=== PATIENT | male | born 1960 | race African-American/Black ===

== ENCOUNTER 2023-11-30 15:59 | Emergency (ER) | payer SELFPAY ==
[2023-11-30 16:21] VITALS: TEMP 97.9; BMI 28.1
[2023-11-30] MEDS: SODIUM CHLORIDE 1,000 ML IV STA ×2 (17:20→18:48)
[2023-11-30 17:23] LABS: VENOUS O2 SATURATION 15.5 % (70-80); VENOUS PCO2 57.3 mmHg (38-52); VENOUS PH 7.351 (7.310-7.410)
[2023-11-30 17:53] LABS: CHLORIDE 95 mmol/L (98-107); POTASSIUM 5.3 mmol/L (3.5-5.1); SODIUM 131 mmol/L (136-145)
[2023-11-30 17:56] LABS: ANION GAP 4 mmol/L (4-13); BLOOD UREA NITROGEN 15.1 mg/dL (7-18); CALCIUM 9.5 mg/dL (8.5-10.1); CO2 31 mmol/L (21-32)
[2023-11-30 17:57] LABS: ALBUMIN 3.9 g/dl (3.4-5.0); MAGNESIUM 2.9 mg/dL (1.8-2.4)
[2023-11-30 17:58] LABS: EOS % 1.5 % (0-4.5); HEMATOCRIT 39.1 % (35.4-49); HEMOGLOBIN 12.9 GM/dL (11.7-16.9); LYMPH % 30.4 % (8-40); MCH 26.4 pg (25.7-33.7); MEAN PLT VOLUME 10.1 fl (7.5-11.1); MONO % 6.3 % (3.8-10.2); NEUT % 60.8 % (42.8-82.8); PLATELET COUNT 214 10^3/uL (134-434); RBC 4.89 M/mm3 (4.00-5.60); RDW 15.2 % (11.9-15.9); WHITE BLOOD COUNT 7.6 K/mm3 (4.0-10.0)
[2023-11-30 17:59] LABS: CREATININE 1.5 mg/dL (0.55-1.3); SGPT/ALT 29 U/L (13-61)
[2023-11-30 18:00] LABS: SGOT/AST 16 U/L (15-37)
[2023-11-30 18:01] LABS: BILIRUBIN,TOTAL 0.7 mg/dL (0.2-1)
[2023-11-30 18:03] LABS: ALK PHOS 138 U/L (45-117)
[2023-11-30] MEDS ORDERED: INSULIN (NOVOLOG) ASPART 100 UNITS/ML 10ML VIAL ONE (18:20)
[2023-11-30] MEDS: INSULIN (NOVOLOG) ASPART 100 UNITS/ML 10ML VIAL SQ ONE (18:24)
[2023-11-30 18:25] LABS: GLUCOSE,RANDOM 496 mg/dL (74-106)
[2023-11-30 18:37] LABS: URINE APPEARANCE CLEAR; URINE BILIRUBIN NEGATIVE (NEGATIVE); URINE COLOR YELLOW; URINE GLUCOSE (UA) 3+ (NEGATIVE); URINE KETONE NEGATIVE (NEGATIVE); URINE LEUK ESTERASE NEGATIVE (NEGATIVE); URINE NITRITE NEGATIVE (NEGATIVE); URINE PROTEIN NEGATIVE (NEGATIVE)
[2023-11-30 19:54] LABS: POTASSIUM 4.2 mmol/L (3.5-5.1)
[2023-11-30 19:55] LABS: CALCIUM 8.5 mg/dL (8.5-10.1)
[2023-11-30 19:56] LABS: ALBUMIN 3.4 g/dl (3.4-5.0); BLOOD UREA NITROGEN 12.3 mg/dL (7-18)
[2023-11-30 19:59] LABS: CREATININE 1.3 mg/dL (0.55-1.3)
[2023-11-30 20:01] LABS: BILIRUBIN,TOTAL 0.4 mg/dL (0.2-1); TOT PROT 6.9 g/dl (6.4-8.2)
[2023-11-30 20:47] VITALS: BP 151/74; PULSE 74; RESP 16
== END 2023-11-30 20:47 | disposition home or self-care (01) ==
LOC: JER 15:59
PROC: 3E0337Z Introduction of Electrolytic and Water Balance Substance into Peripheral Vein, Percutaneous Approach (ICD-10-PCS; principal; 2023-11-30)
PROC: 3E0337Z Introduction of Electrolytic and Water Balance Substance into Peripheral Vein, Percutaneous Approach (ICD-10-PCS; 2023-11-30)
PROC: 3E013VG Introduction of Insulin into Subcutaneous Tissue, Percutaneous Approach (ICD-10-PCS; 2023-11-30)
DX: R42 Dizziness and giddiness (principal); E11.65 Type 2 diabetes mellitus with hyperglycemia
CPT/HCPCS: 36415; 80053; 81003; 82010; 82803; 82962; 83735; 85025; 93005; 93010; 99284-25